=== PATIENT | female | born 1955 | race Caucasian/White ===

== ENCOUNTER 2022-02-13 16:43 | Outpatient (REF) | payer BC, SELFPAY ==
--- NOTE | 2022-02-13 14:50 | VUL_PTH ---
PATIENT: Marie Rosas LOC: [facility] U#:[id number] AGE/SX: 66/F ROOM: RE02/13/[address]: Kelsey Mcqueen DO : 1955 BED: DIS: 02/13/2022 SPEC #: [id number] RECD: 02/13/22 16:58 STATUS: ESA REQ #: [id number] GLORIA: 02/13/22 14:[address]: Kelsey Mcqueen DEPT: Surgical Specimen RECD BY: Kalli Kate ENTERED: 02/13/22 16:59 SP TYPE: VUL OTHR DR: Castillo Lau Tissues: 1 - VULVA BIOPSY Procedures: GROSS AND MICRO LEVEL 4 Comments: [id number]
== END 2022-02-13 16:44 | disposition home or self-care (01) ==
LOC: LBN 16:43
PROVIDERS: PCP Nurse Practitioner Acute Care; Visit Provider Obstetrics & Gynecology
DX: A63.0 Anogenital (venereal) warts (principal)
CPT/HCPCS: 88305

== ENCOUNTER 2024-08-24 13:20 | Outpatient (CLI) | payer BC, SELFPAY ==
--- NOTE | 2024-08-24 06:00 | DI.RAD_ITS ---
Exam(s) XR PAIN CLINIC THORACIC SP 2V EXAM: XR PAIN CLINIC THORACIC SP 2V CLINICAL HISTORY: DX: Intercostal Neuralgia TECHNIQUE: 2D and realtime digital imaging was performed. CONTRAST MATERIAL: Refer to procedure report. COMPARISON: No exams were available for comparison FINDINGS: Fluoroscopy was provided for Dr. Abbott during the performance of a right intercostal nerve block. Please refer to the procedure report for complete details. Ka,r=6.88 mGy IMPRESSION: RADIATION DOSE DELIVERED: 0.0 0.0 0
[2024-08-24 13:29] VITALS: BP 138/71; PULSE 78; RESP 20; TEMP 36.7; O2SAT 98
--- NOTE | 2024-08-24 13:42 | PDOC.PAIN ---
Date of service: 08/24/24 Time of Service: 14:21 Pain Managment Procedure Note Procedure Note Procedure Note: INTERCOSTAL NERVE Block ? Location: Right ? Levels: T10? 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 Post-procedure Diagnosis:? The same as above ? Sedation: NONE? Estimated blood loss:? less than 2 cc ? Surgeon:? Fan Abbott MD COMMENT: PRE PROCEDURE PAIN SCORE: 8/10 ? Procedure Detail:? The procedure and potential risks were explained to the patient and informed written consent was obtained. The patient was escorted to the procedure room and placed in the prone position. Pillows were utilized for proper positioning and comfort.? Time out was performed in procedure room with nursing staff confirming the patient's identity, procedure to be performed, allergies, and any blood thinning or anti-platelet medications. The patient's lower back was prepped with chlorhexidine and draped in a sterile fashion. Sterile technique was maintained throughout the procedure.? Sterile gloves were used, a face mask was worn, and new single dose vials of all medications were used with the top being swabbed with alcohol and given time to dry prior to withdrawal of medication.? A right-sided A/P and oblique fluoroscopic view was obtained, with visualization of the: ?RIGHT T10 ? rib(s). Lidocaine 1% was used to anesthetize the skin. A 25-gauge Quincke needle was advanced until it touched the rib. It was then walked inferiorly until it slipped off bone.? Proper placement was verified in A/P, oblique under fluoroscopy and ultrasound. At this location, following negative aspiration, 0.5 mL of Omnipaque 240 confirming position followed by 0.5cc 0.5% bupivacaine and 20 mg Depo-Medrol was injected.? The patient tolerated the procedure well and was transported to the recovery area for observation and discharge instructions. Permanent images saved and recorded. Follow-up:? As needed COMMENT:Pain went from 8/10 to 0/10. Before the patient left patient had greater than 100% pain relief. Coding Conscious Sedation used for procedure: No CPT Codes: Fluoroscopic guidance (non spine inj.) - 43372 ([id number] ~G) Intercostal Nerve, Single - 02545 ([id number] ~G) Additional Codes: Date of Service (40438) Date of service: 08/24/24
[2024-08-24] MEDS: methylPREDNISolone ACETATE 40 MG/ML VIAL IJ (14:25)
[2024-08-24] MEDS: Omnipaque 240 MG/ML 50 ML BTL IJ (14:25)
[2024-08-24] MEDS: Bupivacaine 0.5% Pres-Free 10 ML VIAL IJ (14:25)
[2024-08-24] MEDS: Nerve Block Tray 1 EACH MC (14:27)
== END 2024-08-24 13:21 | disposition home or self-care (01) ==
PROVIDERS: PCP Nurse Practitioner Acute Care; Visit Provider Anesthesiology Pain Medicine
DX: G58.0 Intercostal neuropathy (principal)
CPT/HCPCS: 64420; 72070; J0665; J1010; Q9967

== ENCOUNTER 2024-09-15 18:47 | Outpatient (REF) | payer BC, SELFPAY ==
--- NOTE | 2024-09-15 14:10 | TONG_PTH ---
PATIENT: Marie Rosas LOC: [facility] U#:[id number] AGE/SX: 69/F ROOM: RE09/15/[address]: Tracy Multani : 1955 BED: DIS: 09/15/2024 SPEC #: [id number] RECD: 09/16/24 12:44 STATUS: ESA REHortensia #: [id number] GLORIA: 09/15/24 14:[address]: Tracy Multani DEPT: Surgical Specimen RECD BY: aKlli Kate ENTERED: 09/16/24 12:45 SP TYPE: FRANCISCA STARK DR: Castillo Lau Tissues: 1 - TONGUE BIOPSY Procedures: GROSS AND MICRO LEVEL 4 Comments: [id number]
== END 2024-09-15 18:48 | disposition home or self-care (01) ==
LOC: LBN 18:47
PROVIDERS: PCP Nurse Practitioner Acute Care; Visit Provider Registered Nurse Maternal Newborn
DX: K22.11 Ulcer of esophagus with bleeding (principal)
CPT/HCPCS: 88305